=== PATIENT | male | born 1960 | race Caucasian/White ===

== ENCOUNTER 2017-01-17 19:36 | Emergency (ER) | payer SELFPAY ==
[~2017-01-17] VITALS: Ht 165.1 cm; Wt 95.5 kg
[2017-01-17 20:20] LABS: APPEARANCE,URINE CLOUDY (CLEAR); GLUCOSE, URINE (UA) NEGATIVE (NEGATIVE); KETONES,URINE 15 mg/dL (NEGATIVE); LEUKOCYTE ESTERASE ,URINE MODERATE (NEGATIVE); OCCULT BLOOD,URINE LARGE (NEGATIVE); PROTEIN,URINE SEE CONFIRM (NEGATIVE)
[2017-01-17 20:23] LABS: ADD UA MICROSCOPIC YES
[2017-01-17 20:33] LABS: SQUAMOUS EPITHELIAL CELL,UR Few /LPF (None Seen); SULFOSALICYLIC ACID,URINE 1+ (Negative)
[2017-01-17 20:34] LABS: WBC,URINE 51-100 /HPF (0-5)
[2017-01-17 21:13] VITALS: BP 130/88
== END 2017-01-17 21:14 | disposition home or self-care (01) ==
LOC: EMS 19:38
DX: N39.0 Urinary tract infection, site not specified (principal); N41.0 Acute prostatitis; F17.210 Nicotine dependence, cigarettes, uncomplicated
CPT/HCPCS: 87086; 99284